=== PATIENT | female | born 1975 | race American Indian/Alaskan Native ===

== ENCOUNTER 2019-10-26 11:59 | Emergency (ER) | payer OTHER ==
[2019-10-26 13:03] VITALS: TEMP 98.4; BMI 23.3
[2019-10-26 13:19] LABS: BASO % 0.4 % (0-2.0); EOS % 1.6 % (0-4.5); HEMATOCRIT 32.5 % (32.4-45.2); HEMOGLOBIN 10.8 GM/dL (10.7-15.3); LYMPH % 51.3 % (8-40); MCH 29.9 pg (25.7-33.7); MCHC 33.1 g/dl (32.0-36.0); MEAN CELL VOLUME 90.1 fl (80-96); MEAN PLT VOLUME 9.5 fl (7.5-11.1); MONO % 7.7 % (3.8-10.2); PH,URINE 7.5 (5.0-8.0); PLATELET COUNT 199 K/MM3 (134-434); RBC 3.61 M/mm3 (3.60-5.2); RDW 13.4 % (11.6-15.6); URINE APPEARANCE CLEAR; URINE BILIRUBIN NEGATIVE (NEGATIVE); URINE COLOR YELLOW; URINE GLUCOSE (UA) NEGATIVE (NEGATIVE); URINE KETONE NEGATIVE (NEGATIVE); URINE LEUK ESTERASE NEGATIVE (NEGATIVE); URINE NITRITE NEGATIVE (NEGATIVE); URINE PROTEIN NEGATIVE (NEGATIVE); URINE UROBILINOGEN 0.2 mg/dL (0.2-1.0); WHITE BLOOD COUNT 5.4 K/mm3 (4.0-10.0)
[2019-10-26 13:51] LABS: ALBUMIN 3.3 g/dl (3.4-5.0); ALK PHOS 36 U/L (45-117); ANION GAP 7 MMOL/L (8-16); BILIRUBIN,TOTAL 0.3 mg/dL (0.2-1); BLOOD UREA NITROGEN 15.2 mg/dL (7-18); CALCIUM 9.1 mg/dL (8.5-10.1); CHLORIDE 106 mmol/L (98-107); CO2 29 mmol/L (21-32); CREATININE 0.8 mg/dL (0.55-1.3); GLUCOSE,RANDOM 83 mg/dL (74-106); MAGNESIUM 1.7 mg/dL (1.8-2.4); POTASSIUM 3.7 mmol/L (3.5-5.1); SGOT/AST 15 U/L (15-37); SGPT/ALT 20 U/L (13-61); SODIUM 142 mmol/L (136-145); TOT PROT 6.3 g/dl (6.4-8.2)
--- NOTE | 2019-10-26 14:06 | PDOC ---
Documentation entered by Bella Ray SCRIBE, acting as scribe for Sourav Garcia MD. Sourav Garcia MD: This documentation has been prepared by the marcelaibeCory Lincy, SCRIBE, under my direction and personally reviewed by me in its entirety. I confirm that the documentation accurately reflects all work, treatment, procedures, and medical decision making performed by me. Attending Attestation - Resident Resident Name: Erik Dhillon - ED Attending Attestation I have performed the following: I have examined & evaluated the patient, The case was reviewed & discussed with the resident, I agree w/resident's findings & plan, Exceptions are as noted - HPI HPI: 10/26/19 14:46 The patient is a 44 year old female with past medical history significant for hypothyroidism, bradycardia, CAD, HTN, HLD and DM who was sent to the emergency department from [facility] for heart rate in the 40s, associated with exertional lightheadedness and generalized weakness. - Physicial Exam PE: 10/26/19 14:04 EXAMINATION CONSTITUTIONAL: Well-appearing; well-nourished; in no apparent distress HEAD: Normocephalic; atraumatic EYES: PERRL; EOM intact ENMT: External appears normal; normal oropharynx NECK: Supple; non-tender; no cervical lymphadenopathy CARD: bradycardia; Normal S1, S2; no murmurs, rubs, or gallops RESP: Normal chest excursion with respiration; breath sounds clear and equal bilaterally; no wheezes, rhonchi, or rales ABD: Soft, non-distended; non-tender; no palpable organomegaly, no palpable hernias EXT: Normal ROM in all four extremities; non-tender to palpation; distal pulses intact SKIN: Warm, dry, no rash NEURO: No focal neurological deficiencies. - Medical Decision Making 10/26/19 14:04 44-year-old female with history of bradycardia, hypothyroidism, family history of early cardiac , CAD referred from the medicine clinic for bradycardia and lightheadedness. In the ER, patient is awake and alert, well-appearing, with vital signs noted for bradycardia, with increased in heart rate upon ambulation. EKG reveals sinus bradycardia at 44 with low voltage but no evidence ST-T abnormalities. Chest x-ray reveals no evidence of cardiomegaly/infiltrate or effusion. I do not suspect pericardial effusion at this time. Differential diagnosis includes symptomatic bradycardia versus angina equivalents given patient's lightheadedness occurs with exertion. Also worsening hypothyroidism versus viral infection is possible. Will obtain CBC/CMP/cardiac profile/TSH. Will discuss with cardiology. Will reassess. Discharge - Discharge Information Problems reviewed: Yes Clinical Impression/Diagnosis: Sinus bradycardia by electrocardiogram, Lightheadedness, Generalized weakness Condition: Good Disposition: HOME - Follow up/Referral Referrals: Clayton Don MD [Primary Care Provider] - Filemon Mata MD [Staff Physician] - - Patient Discharge Instructions Additional Instructions: You were seen in the ER for a slow heart rate, lightheadedness, and weakness. We did an EKG which showed a slow heart rate, but no emergent problems. Your labs showed no emergent problems. We called your vendor manager, Dr. Mata, who recommends you follow up with him for more outpatient tests. Please follow up with him and your PCP within one week. Please return to the ER for chest pain, difficulty breathing, loss of consciousness, or any other reason. - Post Discharge Activity
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
[2019-10-26 17:20] VITALS: BP 134/81; PULSE 42
--- NOTE | 2019-10-27 09:51 | EKG ---
Test Reason : Blood Pressure : / mmHG Vent. Rate : 044 BPM Atrial Rate : 044 BPM P-R Int : 166 ms QRS Dur : 088 ms QT Int : 470 ms P-R-T Axes : 055 028 059 degrees QTc Int : 401 ms POOR DATA QUALITY, INTERPRETATION MAY BE ADVERSELY AFFECTED MARKED SINUS BRADYCARDIA WITH SINUS ARRHYTHMIA LOW VOLTAGE QRS CANNOT RULE OUT ANTERIOR INFARCT , AGE UNDETERMINED ABNORMAL ECG NO PREVIOUS ECGS AVAILABLE Confirmed by MELONIE KNOTT, KENROY ([id number]) on 10/27/2019 9:51:09 AM Referred By: Confirmed By:KENROY WILHELM MD
== END 2019-10-26 17:20 | disposition home or self-care (01) ==
LOC: JER 11:59
DX: R00.1 Bradycardia, unspecified (principal); R42 Dizziness and giddiness; R53.1 Weakness
CPT/HCPCS: 36415; 71045-TC-FY; 80053; 81003; 82550; 83735; 84439; 84443; 84484; 85025; 93005; 93010; 99285-25

== ENCOUNTER → 2022-01-24 | Day surgery (SDC) | payer OTHER ==
[~2022-01-24] MED LIST: ACETAMINOPHEN 325 MG TABLET (FP) PO PRN; ACETAMINOPHEN INJECTION 100 ML IVPB ONE; BUPIVACAINE HCL/EPINEPHRINE/PF 30 ML VIAL IJ ONE; BUPIVACAINE HCL/PF 0.5% (5MG/ML) 10 ML VIAL ONE; DEXAMETHASONE SOD PHOSPHATE 10 MG/1 ML VIAL ONE; DEXAMETHASONE SOD PHOSPHATE 4 MG/1 ML VIAL ONE; FENTANYL CITRATE/PF 50 MCG/ML VIAL IVPUSH PRN; KETOROLAC TROMETHAMINE 30 MG/1 ML VIAL ONE; LACTATED RINGERS SOLUTION 1,000 ML IV SCH; MIDAZOLAM HCL 2 MG/2 ML SINGLE DOSE VIAL ONE; ONDANSETRON 4 MG/2 ML VIAL IVPUSH PRN; ONDANSETRON 4 MG/2 ML VIAL ONE; PHENYLEPHRINE HCL 10 MG/1 ML SINGLE DOSE VIAL ONE; PROPOFOL 20 ML ONE; ceFAZolin SODIUM 1 GM VIAL ONE; oxyCODONE HCL 5 MG TABLET PO PRN
[2022-01-24 13:12] VITALS: PULSE 57
[2022-01-24 13:22] VITALS: BP 117/66; RESP 16; TEMP 97.9
== END | disposition home or self-care (01) ==
LOC: FASU 09:19
PROVIDERS: ATTEND Orthopaedic Surgery
PROC: 0RBK4ZZ Excision of Left Shoulder Joint, Percutaneous Endoscopic Approach (ICD-10-PCS; principal; 2022-01-24 11:13)
DX: S46.012D Strain of muscle(s) and tendon(s) of the rotator cuff of left shoulder, subsequent encounter (principal); M75.22 Bicipital tendinitis, left shoulder; M75.52 Bursitis of left shoulder; M65.822 Other synovitis and tenosynovitis, left upper arm; S43.432A Superior glenoid labrum lesion of left shoulder, initial encounter; M75.02 Adhesive capsulitis of left shoulder; X58.XXXA Exposure to other specified factors, initial encounter; X58.XXXD Exposure to other specified factors, subsequent encounter; Y93.9 Activity, unspecified; Y92.9 Unspecified place or not applicable
CPT/HCPCS: 73030-TC-LT-FY; 81025; 82962; 94760; J1100

== ENCOUNTER 2023-09-03 01:25 | Emergency (ER) | payer OTHER ==
[2023-09-03 01:33] VITALS: BP 158/97; RESP 18; TEMP 97.5; BMI 28.7
[2023-09-03] MEDS ORDERED: diphenhydrAMINE HCL 25 MG CAPSULE (FP) PO ONE (02:13)
[2023-09-03] MEDS: diphenhydrAMINE HCL 50 MG CAPSULE PO ONE (02:14)
[2023-09-03 02:40] VITALS: PULSE 52
== END 2023-09-03 02:40 | disposition home or self-care (01) ==
LOC: JER 01:25
DX: L29.9 Pruritus, unspecified (principal); R21 Rash and other nonspecific skin eruption
CPT/HCPCS: 99283-25